=== PATIENT | male | born 1940 | race Caucasian/White ===

== ENCOUNTER 2021-07-08 18:39 | Emergency (ER) | payer MEDICARE, SELFPAY ==
[2021-07-08 18:50] VITALS: BP 157/77; PULSE 83; RESP 16; TEMP 38.2; O2SAT 97
--- NOTE | 2021-07-08 18:55 | ED.MALEGU ---
HPI - Male Genitourinary General Chief complaint: Urogenital-Male Stated complaint: FREQUENT URINATION Time Seen by Provider: 07/08/21 18:55 Source: patient Mode of arrival: ambulatory Limitations: no limitations History of Present Illness HPI Narrative: Doroteo Mohr is a 81 yo male with a PMH of HTN who comes to [facility] with complaints of orange-colored urine after taking Azo and also frequency and difficulty with stream since Sunday. has had some urinary stream problems for years and is treated in [place] Related Data Home Medications Medication Instructions Recorded Confirmed lisinopril 07/08/21 metformin mg 07/08/21 Allergies Allergy/AdvReac Type Severity Reaction Status Date / Time Unable to Assess Allergy Verified 07/08/21 19:01 Review of Systems Review of Systems: CONSTITUTIONAL: Denies fever, chills, sweats. EYES: Denies visual changes, redness, discharge. ENT: Denies rhinorrhea, congestion, sore throat, otalgia. CARDIOVASCULAR: Denies chest pain, palpitations, edema. RESPIRATORY: Denies dyspnea, wheezing, cough GASTROINTESTINAL: Denies abdominal pain, nausea, vomiting, diarrhea. GENITOURINARY: Has dysuria, hematuria, abnormal discharge SKIN: Denies rash or itching. NEUROLOGIC: Denies numbness, or focal weakness. PSYCHIATRIC: Denies anxiety or depression. [facility] Past Medical History Medical History Diabetes HTN (hypertension) Social History Social History (Updated 07/08/21 @ 19:05 by Lidia Huitron CNP) Smoking status: Never smoker Alcohol intake: current Comments At time of signature, I agree with nursing past medical, surgical, social and family history. There is no relevant family history pertinent to the presenting complaint. Exam Narrative: GENERAL: This is a well-nourished, well-developed patient, in mild distress. HEAD: normocephalic, atraumatic. EYES Sclera clear/white. Vision is grossly intact. EARS: External ears normal, . Hearing grossly intact. NOSE: External nose normal without nasal discharge, nares without redness, no rhinorrhea. THROAT: Mucous membranes moist, NECK: Neck supple, CARDIOVASCULAR: Regular rate and rhythm without murmurs, gallops, or rubs. RESPIRATORY: Clear to auscultation. Breath sounds equal bilaterally. No wheezes, rales, or rhonchi. GASTROINTESTINAL: Abdomen soft, SKIN: warm, intact with no suspicious lesions or rash, good texture and turgor. NEURO: awake, alert, and oriented to person, place and time. There were no obvious focal neurologic abnormalities. Steady gait EXTREMITIES: Normal range of motion. BACK: Nontender without deformity Course Course Emergency Course: Patient comes with complaining of gout with frequency and has been taking Azo for urinary tract symptoms he also has been running a temperature that responds to ASA but has been constant for the last few days UA shows positive blood positive protein positive nitrite 2+ leukocytes, trace glucose Started on Keflex 500 mg 1 twice daily x7 days and told to fluids to take Tylenol for fever but will only take ASA - and discussed that he has trace glucose in his urine so that his prediabetes may not be fully controlled and should follow up with his pcp Vital Signs Vital signs: Vital Signs Temperature 100.7 F H 07/08/21 18:50 Pulse Rate 83 07/08/21 18:50 Respiratory Rate 16 07/08/21 18:50 Blood Pressure 157/77 H 07/08/21 18:50 Pulse Oximetry 97 07/08/21 18:50 Temperature 100.7 F H 07/08/21 18:50 Pulse Rate 83 07/08/21 18:50 Respiratory Rate 16 07/08/21 18:50 Blood Pressure 157/77 H 07/08/21 18:50 Pulse Oximetry 97 07/08/21 18:50 MDM - Male Genitourinary Differential Diagnosis Differential diagnosis: Likely urinary tract infection, urethritis, prostatitis and other Lab Data Labs: Urine Glucose Trace Reference Rang
== END 2021-07-08 19:06 | disposition home or self-care (01) ==
PROVIDERS: Emergency Provider Nurse Practitioner
DX: N30.01 Acute cystitis with hematuria (principal); E11.9 Type 2 diabetes mellitus without complications; I10 Essential (primary) hypertension
CPT/HCPCS: 81003; 87086; 87147; 87181; 87186; 99213; G0463